=== PATIENT | male | born 1970 | race Caucasian/White ===

== ENCOUNTER 2025-08-03 00:54 | Emergency (ER) | payer BC, SELFPAY ==
[2025-08-03 00:57] VITALS: BP 145/83
[2025-08-03 01:01] VITALS: BP 145/83
[2025-08-03 01:06] VITALS: BMI 28.7
--- NOTE | 2025-08-03 01:06 | ED.GENMED ---
History of Present Illness
General
Chief Complaint: Male Genito-Urinary Symptoms
Time Seen by Provider: 08/03/25 01:06
History of Present Illness
History of Present Illness:
FOCUSED PAST MEDICAL HISTORY
- Has had chronic GI issues recently and is scheduled for endoscopy and colonoscopy in the next few weeks
REVIEW OF OLD RECORDS
- No old records notable for review in [facility]
Note:
CHIEF COMPLAINT(S)
Left testicular pain.
HISTORY OF PRESENT ILLNESS
The patient is a 54-year-old male presenting with acute onset left testicular pain that began abruptly around 10 p.m. The patient describes the pain as a 'dull throb' and reports it feels different from the right testicle. Initially, he noted
difficulty with urinary flow, experiencing a slow stream and the sensation of a full bladder, although unable to void effectively. No prior episodes of similar testicular pain have been experienced. There is mild burning during urination noted on
the last attempt. The patient has also been dealing with gastrointestinal issues and is scheduled for an upcoming endoscopy and colonoscopy.
ADDITIONAL HISTORY OBTAINED FROM SOURCES OTHER THAN THE PATIENT
The patient arrived by ambulance due to the inability to find alternate transport, as he is visiting family in [place] and could not arrange for other means of transport from his home in [place].
CHRONIC MEDICAL CONDITIONS SIGNIFICANTLY AFFECTING CARE
The patient reports ongoing gastrointestinal issues and is under evaluation, with an endoscopy and colonoscopy planned in the coming week.
SOCIAL DETERMINANTS AFFECTING HEALTH
The patient is currently visiting family in [place] and does not have access to transportation, leading to the use of ambulance services for the current visit.
REVIEW OF SYSTEMS
- Gastrointestinal: Ongoing issues; scheduled for endoscopy and colonoscopy.
- Genitourinary: Acute left testicular pain, difficulty with urinary flow, sensation of full bladder, mild burning during urination.
- Reproductive: Notable difference in sensation and symmetry of testicles.
PHYSICAL EXAM
General: Alert, no acute distress. Appears fairly comfortable.
Skin: Warm, dry.
Head: Normocephalic, atraumatic.
Neck: Supple, trachea midline.
Eye, Ears, Nose, Mouth and Throat: Oral mucosa moist.
Cardiovascular: Normal peripheral perfusion, no edema.
Respiratory: Respirations are non-labored.
Gastrointestinal: Abdomen nondistended.
Back: Normal range of motion, normal alignment.
Musculoskeletal: Normal ROM, normal strength.
Neurological: Alert and oriented to person, place, time, and situation, no focal neurological deficit observed.
Psychiatric: Cooperative, appears somewhat anxious
Genital: Minimal tenderness diffusely to the left testicle, without definite epididymal tenderness. Otherwise normal external genitalia
PROBLEM LIST
- Acute: Left testicular pain, possible urinary retention.
- Chronic: Gastrointestinal issues under evaluation.
PLAN
- Obtain ultrasound of the testicles to assess for any acute pathologies.
- Perform urinalysis to evaluate for potential infections or other urologic issues.
- Ensure transportation is arranged for follow-up and further care as needed.
DIFFERENTIAL DIAGNOSIS
The Differential Diagnosis includes, in no particular order and is not limited to:
1. Testicular torsion
2. Epididymitis
3. Orchitis
4. Urinary tract infection
5. Kidney stones
6. Hernia
7. Hydrocele
8. Varicocele
9. Testicular tumor
10. Prostatitis
RADIOLOGY
- Ultrasounds been which I personally viewed and see flow to both testicles
- Vision radiologist shows left epididymal cyst measuring 6 x 7 x 8 mm and small bilateral hydroceles are noted as well
LABS
- Urinalysis negative for infection and blood
SUMMARY OF ENCOUNTER
The patient, a 54-year-old male, presented to the emergency department with acute left testicular pain which began suddenly around 10 p.m. The pain was described as a 'dull throb' with associated difficulty in urinary flow, including a slow stream
and the sensation of a full bladder without effective voiding, as well as mild burning during urination. An ultrasound was performed to assess for acute pathologies, and findings were written down for further reference. A urinalysis was conducted
which showed no signs of infection. The patient reported ongoing gastrointestinal issues, with an endoscopy and colonoscopy planned. Due to the nature of the presenting symptoms, the patient was monitored in the emergency department, and efforts
were made to ensure he had the necessary information and prescriptions for ongoing care.
ASSESSMENT
The primary assessment involves differential diagnoses that include testicular torsion, epididymitis, orchitis, urinary tract infection, and others, with no signs of infection noted in urinalysis requiring antibiotic therapy. It was determined not
to prescribe antibiotics at this time.
EMERGENCY TREATMENTS ADMINISTERED
One dose of tamsulosin (Flomax) was administered in the department. A prescription for tamsulosin was sent to a local pharmacy for ongoing treatment.
PLAN
The plan includes a follow-up with a specialist for ongoing assessment and treatment of testicular symptoms. The prescription for tamsulosin has been provided for managing urinary symptoms. Attention to potential follow-up discussion with the
box coverer hand regarding upcoming gastrointestinal evaluation.
MEDICATION RECONCILIATION
A dose of tamsulosin was administered on-site, and a prescription for tamsulosin was sent to a local pharmacy.
MEDICAL DECISION MAKING
1. Number and Complexity of Problems Addressed: Chronic conditions affecting care include ongoing gastrointestinal issues for which the patient is scheduled to have an endoscopy and colonoscopy. Differential diagnoses considered are testicular
torsion, epididymitis, orchitis, urinary tract infection, kidney stones, hernia, hydrocele, varicocele, testicular tumor, and prostatitis.
2. Data:
Category 1: A urinalysis was conducted, which showed no signs of infection.
Category 2: No specific radiology reports reviewed in detail; reports were written down for the patient.
Category 3: Discussion included providing the patient with necessary information for follow-up care and coordinating care with a local pharmacy.
3. Risk: Consideration of admission was not deemed necessary, and outpatient management with follow-up was advised. The patients symptoms were managed with medication (tamsulosin), and follow-up was emphasized to evaluate symptom progression and
response to treatment. Care was significantly affected by the patients lack of transportation options, requiring ambulance transport.
DIAGNOSIS
- Left testicular pain, unspecified (ICD-10: N50.8)
- Urinary retention, unspecified (ICD-10: R33.9)
- Gastrointestinal symptoms under evaluation (ICD-10: R19.7)
UPDATE
- Initial bladder scan 96 mL
- No bladder or sign of infection on urinalysis
- Small epididymal cyst along with small hydroceles noted on ultrasound imaging with no sign of torsion
- To follow with urology as an outpatient
- Has appeared very comfortable throughout his stay in the ER
Phy Exam
Physical Exam
Physical Exam:
See HPI
Course
Orders/Labs/Results
Orders:
Orders
08/03/25 01:18
US Scrotum Urgent
Comment:
Reason For Exam: L testicular pain
08/03/25 01:24
Urinalysis Reflex To Culture Urgent
Date Specimen was Collected: 08/03/25
Time Specimen was Collected: 01:19
Urine Microscopic Reflex Cult Urgent
08/03/25 02:45
Tamsulosin [Flomax] 0.4 mg PO NOW STA
Abnormal Lab Results
08/03/25
01:24
Urine Bacteria (Reflex) Few A
(Negative)
Urine Albumin (Reflex) 1+ A
(Neg - Trace)
Vital Signs
Initial and Last Documented VS:
Initial Vital Signs
Temp Pulse Resp BP Pulse Ox
36.9 C 92 16 145/83 100
08/03/25 00:57 08/03/25 00:57 08/03/25 00:57 08/03/25 00:57 08/03/25 00:57
Last Documented Vital Signs
Temp Pulse Resp BP Pulse Ox
36.6 C 89 16 136/76 100
08/03/25 03:01 08/03/25 03:01 08/03/25 03:01 08/03/25 03:01 08/03/25 03:01
*Pulse Oximetry
SaO2: 100
Oxygen Mode of Delivery: Room air
Patient hypoxic: no
*Critical Care Note
Total Time (30-74mins, 75-104mins- exclusive of procedures): Not Applicable
ED Attending Note
-
Portions of this chart may have been created with voice recognition software.� Occasional wrong word or��sound alike� substitutions may have occurred due to the inherent limitations of voice recognition software.
Discharge Plan
Departure
Patient Disposition: Home (Routine Discharge)
Date of Disposition: 08/03/25
Time of Disposition: 02:45
Patient with high blood pressure during this ER visit?: Yes
Discharge Problem:
Pain in left testicle
Prescriptions:
New
tamsulosin 0.4 mg capsule
0.4 mg PO DAILY Qty: 14 0RF
Referrals:
Bernardo Guo MD [Family Provider, Internal Medicine]
Dario Nguyen MD [Active, Urology]
Activity Restrictions/Additional Instructions:
The urinalysis shows no sign of infection. I did send a prescription for Flomax (tamsulosin) to your pharmacy. On the ultrasound, the testicles appear normal and there is blood flow to both testicles. There is also a 6 x 7 x 8 mm left epididymal
cyst as well as small bilateral hydroceles. So I have given you the contact information for Dr. Nguyen, local urologist.
Interventions
Interventions:
*Risk Screen - Suicide Last Done: 08/03/25 01:04
*General Assessment Last Done: 08/03/25 01:04
*Neglect/Abuse Screening Last Done: 08/03/25 01:04
*ED COVID-19 Vaccine History Last Done: 08/03/25 01:04
*ED Influenza Vaccine History Last Done: 08/03/25 01:04
[facility] Risk Assessment Tool Last Done: 08/03/25 01:06
*Nursing Disposition Last Done: 08/03/25 03:01
ED-Male Genitourinary Assessment Last Done: 08/03/25 01:04
Discharge Date and Time
Discharge Date/Time: 08/03/25 03:48
Print Language: KOREAN
[2025-08-03 01:46] LABS: Urine Character Clear (Clear)
[2025-08-03 01:54] LABS: Urine Red Blood Cell 0-2 /HPF (0-2); Urine White Cell 0-2 /HPF (0-5)
[2025-08-03] MEDS: FLOMAX 0.4 MG PO (02:58)
[2025-08-03 03:01] VITALS: BP 136/76
== END 2025-08-03 03:48 | disposition home or self-care (01) ==
LOC: EMR 00:54
PROVIDERS: EMERGENCY PHYSICIAN Emergency Medicine; FAMILY PHYSICIAN Internal Medicine
DX: N50.812 Left testicular pain (principal); N50.3 Cyst of epididymis; N43.3 Hydrocele, unspecified; R03.0 Elevated blood-pressure reading, without diagnosis of hypertension
CPT/HCPCS: 99284; 76870; 81003; 81015; 93976